=== PATIENT | female | born 1960 | race African-American/Black ===

== ENCOUNTER → 2016-09-21 | Outpatient (CLI) | payer OTHER ==
--- NOTE | 2016-09-21 19:10 | EKG REPORT ---
SEVERITY:- BORDERLINE ECG - SINUS RHYTHM BORDERLINE T WAVE ABNORMALITIES ANTEROLATERAL. : Confirmed by: Robert Marsh MD 21-Sep-2016 19:10:01
== END ==
LOC: OD 15:23
PROVIDERS: ATTEND Orthopaedic Surgery
DX: Z01.89 Encounter for other specified special examinations (principal); Z01.810 Encounter for preprocedural cardiovascular examination
CPT/HCPCS: 93005; 93010